=== PATIENT | female | born 1970 ===

== ENCOUNTER 2018-01-29 13:58 | Emergency (ER) | payer MEDICAID ==
[~2018-01-29] VITALS: Ht 160 cm; Wt 55.5 kg
[2018-01-29 14:03] VITALS: BP 163/100
== END 2018-01-29 14:30 | disposition left against medical advice (07) ==
LOC: ER 13:58
DX: G89.29 Other chronic pain (principal); M79.644 Pain in right finger(s)
CPT/HCPCS: 99281